=== PATIENT | male | born 1965 | race Caucasian/White ===

== ENCOUNTER 2017-12-30 11:57 | Outpatient (REF) | payer BC, SELFPAY ==
[2017-12-30 22:02] LABS: Anion Gap 8.7 mmol/L (3-11); BUN 17 mg/dL (7-18); CO2 28.3 mmol/L (21.0-32.0); CREATININE 1.01 mg/dL (0.70-1.30); Calcium 9.1 mg/dL (8.5-10.1); Chloride 105 mmol/L (98-107); Cholesterol 158 mg/dL (50-200); Glucose 102 mg/dL (70-100); HDL Cholesterol 31 mg/dL (40-60); LDL CHOLESTEROL 115 mg/dL (<100); Potassium 4.6 mmol/L (3.5-5.1); Sodium 142 mmol/L (136-145); Triglyceride 167 mg/dL (30-150)
== END 2017-12-30 12:17 ==
LOC: NCHCN 11:57
PROVIDERS: PCP Internal Medicine; Visit Provider Internal Medicine
DX: I10 Essential (primary) hypertension (principal); E78.5 Hyperlipidemia, unspecified
CPT/HCPCS: 80048; 80061; 83721

== ENCOUNTER 2019-12-01 16:39 | Outpatient (REF) | payer OTHER, SELFPAY ==
[2019-12-01 21:44] LABS: ALT 42 U/L (16-63); AST 29 U/L (15-37); Albumin 4.5 g/dL (3.4-5.0); Alkaline Phosphatase 96 U/L (46-116); Anion Gap 10.4 mmol/L (3-11); BUN 26 mg/dL (7-18); Bilirubin, Total 1.6 mg/dL (0.2-1.0); CO2 26.6 mmol/L (21.0-32.0); CREATININE 1.13 mg/dL (0.70-1.30); Calcium 9.2 mg/dL (8.5-10.1); Calculated LDL 153 mg/dL (<100); Chloride 102 mmol/L (98-107); Cholesterol 215 mg/dL (<200); Glucose 89 mg/dL (74-106); HDL Cholesterol 32 mg/dL (40-60); Potassium 3.8 mmol/L (3.5-5.1); Sodium 139 mmol/L (136-145); Total Protein 7.5 g/dL (6.4-8.2); Triglyceride 151 mg/dL (<150)
== END 2019-12-01 16:59 ==
LOC: NCHCN 16:39
PROVIDERS: PCP Internal Medicine; Visit Provider Internal Medicine
DX: I10 Essential (primary) hypertension (principal); E78.5 Hyperlipidemia, unspecified
CPT/HCPCS: 80053; 80061

== ENCOUNTER 2020-06-08 08:13 | Outpatient (REF) | payer OTHER, SELFPAY ==
[2020-06-08 13:31] LABS: Anion Gap 4.9 mmol/L (3-11); BUN 27 mg/dL (7-18); CO2 27.1 mmol/L (21.0-32.0); CREATININE 1.3 mg/dL (0.70-1.30); Calcium 9.2 mg/dL (8.5-10.1); Calculated LDL 78 mg/dL (<100); Chloride 105 mmol/L (98-107); Cholesterol 136 mg/dL (<200); Glucose 112 mg/dL (74-106); HDL Cholesterol 30 mg/dL (40-60); Potassium 4.3 mmol/L (3.5-5.1); Sodium 137 mmol/L (136-145); Triglyceride 142 mg/dL (<150)
== END 2020-06-08 08:14 | disposition home or self-care (01) ==
LOC: NCHCN 08:13
PROVIDERS: PCP Internal Medicine; Visit Provider Internal Medicine
DX: I10 Essential (primary) hypertension (principal); E78.5 Hyperlipidemia, unspecified
CPT/HCPCS: 80048; 80061

== ENCOUNTER 2020-12-17 07:50 | Outpatient (REF) | payer OTHER, SELFPAY ==
[2020-12-17 16:09] LABS: Glucose 111 mg/dL (74-106)
[2020-12-18 13:53] LABS: PSA, Screening 0.7 ng/mL (0.0-3.5)
== END 2020-12-17 07:51 | disposition home or self-care (01) ==
LOC: NCHCN 07:50
PROVIDERS: PCP Internal Medicine; Visit Provider Internal Medicine
DX: R73.9 Hyperglycemia, unspecified (principal); Z12.5 Encounter for screening for malignant neoplasm of prostate
CPT/HCPCS: 82947; 84153; 83036

== ENCOUNTER 2022-01-17 13:28 | Outpatient (REF) | payer OTHER, SELFPAY ==
[2022-01-17 15:54] LABS: Hemoglobin A1C 5.8 % (<5.7)
[2022-01-17 16:16] LABS: ALT 58 U/L (16-63); AST 35 U/L (15-37); Albumin 4.4 g/dL (3.4-5.0); Alkaline Phosphatase 95 U/L (46-116); Anion Gap 10.2 mmol/L (3-11); BUN 26 mg/dL (7-18); Bilirubin, Total 1.6 mg/dL (0.2-1.0); CO2 26.8 mmol/L (21.0-32.0); CREATININE 1.1 mg/dL (0.70-1.30); Calculated LDL 74 mg/dL (<100); Chloride 102 mmol/L (98-107); Cholesterol 133 mg/dL (<200); Estimated GFR 77.81 (mL/min/1.73m2); Glucose 106 mg/dL (74-106); HDL Cholesterol 35 mg/dL (40-60); Potassium 4.1 mmol/L (3.5-5.1); Sodium 139 mmol/L (136-145); Total Protein 7.9 g/dL (6.4-8.2); Triglyceride 122 mg/dL (<150)
== END 2022-01-17 13:29 | disposition home or self-care (01) ==
LOC: NCHCN 13:28
PROVIDERS: PCP Internal Medicine; Visit Provider Internal Medicine
DX: Z00.00 Encounter for general adult medical examination without abnormal findings (principal); I10 Essential (primary) hypertension; E78.5 Hyperlipidemia, unspecified; R73.9 Hyperglycemia, unspecified
CPT/HCPCS: 80053; 80061; 83036

== ENCOUNTER 2023-01-21 09:20 | Outpatient (REF) | payer OTHER, SELFPAY ==
[2023-01-21 15:52] LABS: ALT 50 U/L (16-63); AST 26 U/L (15-37); Albumin 4.2 g/dL (3.4-5.0); Alkaline Phosphatase 99 U/L (46-116); BUN 25 mg/dL (7-18); Bilirubin, Total 0.8 mg/dL (0.2-1.0); CREATININE 1.1 mg/dL (0.70-1.30); Calcium 9.8 mg/dL (8.5-10.1); Chloride 102 mmol/L (98-107); Estimated GFR 77.33 (mL/min/1.73m2); Glucose 120 mg/dL (74-106); Potassium 4.1 mmol/L (3.5-5.1); Sodium 137 mmol/L (136-145); Total Protein 7.6 g/dL (6.4-8.2)
[2023-01-22 09:23] LABS: Hepatitis C Ab w Rflx HCV PCR Negative (Negative)
[2023-01-22 10:27] LABS: HIV-1/2 Ag & Ab Screen Negative (Negative)
== END 2023-01-21 09:21 | disposition home or self-care (01) ==
LOC: NCHCN 09:20
PROVIDERS: PCP Internal Medicine; Visit Provider Internal Medicine
DX: R79.89 Other specified abnormal findings of blood chemistry (principal); R73.03 Prediabetes; Z00.00 Encounter for general adult medical examination without abnormal findings; Z11.59 Encounter for screening for other viral diseases; Z11.4 Encounter for screening for human immunodeficiency virus [HIV]
CPT/HCPCS: 80053; 86803; 87389; 83036

== ENCOUNTER 2024-01-26 13:02 | Outpatient (REF) | payer OTHER, SELFPAY ==
[2024-01-26 15:30] LABS: ALT 67 U/L (16-63); AST 33 U/L (15-37); Albumin 4.2 g/dL (3.4-5.0); Alkaline Phosphatase 110 U/L (46-116); Anion Gap 8.5 mmol/L (3-11); BUN 24 mg/dL (7-18); Bilirubin, Total 1.27 mg/dL (0.2-1.0); CO2 28.5 mmol/L (21.0-32.0); CREATININE 1.2 mg/dL (0.70-1.30); Calcium 9.3 mg/dL (8.5-10.1); Calculated LDL 69 mg/dL (<100); Chloride 107 mmol/L (98-107); Cholesterol 126 mg/dL (<200); Estimated GFR 69.23 (mL/min/1.73m2); Glucose 115 mg/dL (74-106); HDL Cholesterol 36 mg/dL (40-60); Potassium 4.6 mmol/L (3.5-5.1); Sodium 144 mmol/L (136-145); Total Protein 7.5 g/dL (6.4-8.2); Triglyceride 107 mg/dL (<150)
[2024-01-26 17:05] LABS: Uric Acid 8.2 mg/dL (3.5-7.2)
[2024-01-26 17:47] LABS: Hemoglobin A1C 5.7 % (<5.7)
== END 2024-01-26 13:03 | disposition home or self-care (01) ==
LOC: NCHCN 13:02
PROVIDERS: PCP Internal Medicine; Visit Provider Internal Medicine
DX: I10 Essential (primary) hypertension (principal); E78.5 Hyperlipidemia, unspecified; R73.03 Prediabetes; M25.572 Pain in left ankle and joints of left foot
CPT/HCPCS: 80053; 80061; 83036; 84550

== ENCOUNTER 2024-05-02 12:41 | Outpatient (REF) | payer OTHER, SELFPAY ==
[2024-05-02 15:07] LABS: ALT 54 U/L (16-63); AST 28 U/L (15-37); Albumin 4.5 g/dL (3.4-5.0); Alkaline Phosphatase 114 U/L (46-116); Anion Gap 4.3 mmol/L (3-11); BUN 21 mg/dL (7-18); Bilirubin, Direct 0.3 mg/dL (0.0-0.2); Bilirubin, Total 1.26 mg/dL (0.2-1.0); CO2 32.7 mmol/L (21.0-32.0); CREATININE 1.1 mg/dL (0.70-1.30); Calcium 9.7 mg/dL (8.5-10.1); Chloride 105 mmol/L (98-107); Estimated GFR 76.85 (mL/min/1.73m2); Glucose 115 mg/dL (74-106); Potassium 4.6 mmol/L (3.5-5.1); Sodium 142 mmol/L (136-145); Total Protein 7.7 g/dL (6.4-8.2)
[2024-05-03 11:50] LABS: Hepatitis C Ab w Rflx HCV PCR Negative (Negative)
== END 2024-05-02 12:42 | disposition home or self-care (01) ==
LOC: NCHCN 12:41
PROVIDERS: PCP Internal Medicine; Visit Provider Internal Medicine
DX: R74.01 Elevation of levels of liver transaminase levels (principal)
CPT/HCPCS: 80053; 80076; 86803

== ENCOUNTER 2025-01-27 09:29 | Outpatient (REF) | payer OTHER, SELFPAY ==
[2025-01-27 15:08] LABS: HCT 45.3 % (40.0-50.0); HGB 15.5 g/dL (13.5-17.5); MCH 31.4 pg (27.0-33.0); MCHC 34.2 % (32.0-36.0); MCV 92 fL (80-95); MPV 10.2 fL (8.0-11.0); Platelet Count 297 10^3/uL (130-400); RBC 4.94 10^6/uL (4.36-5.78); RDW 11.6 % (11.8-14.1); RDW-SD 38.9 fL; WBC 10.94 10^3/uL (4.4-10.8)
[2025-01-27 15:25] LABS: ALT 36 U/L (10-49); AST 28 U/L (<34); Albumin 4.8 g/dL (3.4-5.0); Alkaline Phosphatase 98 U/L (46-116); Anion Gap 9.2 mmol/L (3-11); BUN 30 mg/dL (9-23); Bilirubin, Total 1.50 mg/dL (0.2-1.2); CO2 28.8 mmol/L (20.0-31.0); Calcium 9.3 mg/dL (8.3-10.6); Chloride 104 mmol/L (98-107); Cholesterol 131 mg/dL (<200); Glucose 106 mg/dL (74-106); HDL Cholesterol 35 mg/dL (>40); Potassium 4.4 mmol/L (3.5-5.1); Sodium 142 mmol/L (136-145); Total Protein 7.7 g/dL (5.7-8.2)
[2025-01-27 15:30] LABS: Hemoglobin A1C 6.0 % (<5.7)
[2025-01-27 16:01] LABS: Uric Acid 8.0 mg/dL (3.7-9.2)
[2025-01-27 22:49] LABS: PSA, Screening 0.9 ng/mL (<=4.5)
[2025-01-27 23:26] LABS: Hepatitis C Ab w Rflx HCV PCR Negative (Negative)
== END 2025-01-27 09:30 | disposition home or self-care (01) ==
LOC: NCHCN 09:29
PROVIDERS: PCP Internal Medicine; Visit Provider Internal Medicine
DX: R74.01 Elevation of levels of liver transaminase levels (principal); R73.03 Prediabetes; E78.5 Hyperlipidemia, unspecified; M10.9 Gout, unspecified; Z12.5 Encounter for screening for malignant neoplasm of prostate
CPT/HCPCS: 80053; 80061; 84153; 85027; 86803; 83036; 84550